=== PATIENT | male | born 1990 | race Two or more races ===

== ENCOUNTER 2019-07-02 23:52 | Inpatient (IN) | payer OTHER ==
[~2019-07-02] VITALS: Ht 177.8 cm; Wt 83.4 kg
[2019-07-03] MEDS ORDERED: LIDOCAINE W/ EPINEPHRINE 2% INJ 20ML VIAL ID ONE (02:00)
[2019-07-03 02:33] LABS: Basophils # (auto) 0 10 ^3/uL (0-0.2); Basophils % (auto) 0.1 % (0.0-2.0); Eosinophils # (auto) 0 10 ^3/uL (0-0.8); Hematocrit 45.9 % (41.0-53.0); Hemoglobin 15.3 g/dL (13.5-17.5); Lymphocytes # (auto) 0.9 10 ^3/uL (0.4-5.4); Mean Corpuscular Hemoglobin 30.1 pg (28.0-32.0); Mean Corpuscular Hgb Conc. 33.3 g/dL (32.0-36.0); Mean Corpuscular Volume 90.3 fL (80.0-100.0); Monocytes # (auto) 0.7 10 ^3/uL (0-1.3); Monocytes % (auto) 4.3 % (0.0-12.0); Neutrophils # (auto) 13.8 10 ^3/uL (1.6-8.6); Neutrophils % (auto) 89.6 % (37.0-80.0); Nucleated Red Blood Cells % 0.1 %; Platelet Count (auto) 183 10^3/uL (140-450); Red Blood Cells 5.08 10^6/uL (4.5-5.90); White Blood Cell 15.5 10^3/uL (4.4-10.8)
[2019-07-03 02:52] LABS: Albumin 4.2 g/dL (3.4-5.0); Calcium 8.5 mg/dL (8.5-10.1); Potassium 3.5 mmol/L (3.5-5.1)
[2019-07-03 02:56] LABS: BUN/Creatinine Ratio 12.4; Bilirubin, Total 0.2 mg/dL (0.2-1.0)
[2019-07-03] MEDS ORDERED: LORazepam 2MG/ML-1ML VIAL ONE ×2 (04:24)
[2019-07-03] MEDS ORDERED: LORazepam 2MG/ML-1ML VIAL IV ONE (04:30)
[2019-07-03] MEDS ORDERED: PHENYTOIN IV DILANTIN 1,000 MG in SODIUM CHL 0.9% 250 ML IV ONE (07:00)
[2019-07-03] MEDS ORDERED: LORazepam 2MG/ML-1ML VIAL IV PRN (07:15)
--- NOTE | 2019-07-03 08:25 | NUR ---
ER received patient from the ER. No signs of distress at this time. Will continue to monitor.
[2019-07-03 09:00] VITALS: BP 124/71
[2019-07-03] MEDS ORDERED: ENOXAPARIN SOD 40 MG/0.4 ML SYRINGE SC SCH (10:00)
[2019-07-03] MEDS ORDERED: levETIRAcetam 500 MG TAB PO SCH (10:00)
[2019-07-03] MEDS: D5W/SOD CHL 0.45% 1,000 ML IV SCH ×3 (10:10→20:55)
--- NOTE | 2019-07-03 10:10 | NUR ---
MRI Patient down to MRI. No signs of distress at this time.
[2019-07-03] MEDS ORDERED: PHE100C PO (10:16)
[2019-07-03 12:37] VITALS: BP 103/61
[2019-07-03 17:00] VITALS: BP 117/67
--- NOTE | 2019-07-03 19:00 | NUR ---
Received report from the Day RN. Joaquin. Pt. an inmate, resting quietly in bed with Officers @ the bedside.
--- NOTE | 2019-07-03 20:00 | NUR ---
Assessment done and completed.
--- NOTE | 2019-07-03 20:55 | NUR ---
IVF of D5 1/2 NS followed up a new bag of 1 L to run @ the same rate of 150 ml./hr. continuous.
[2019-07-03] MEDS: PHENYTOIN SODIUM 100 MG CAP PO SCH (21:16)
--- NOTE | 2019-07-03 21:16 | NUR ---
Due meds. given @ this time. Pt. made aware of the use and benefits of the med. scheduled. Pt. verbalized understanding.
[2019-07-03 22:00] VITALS: BP 116/70
--- NOTE | 2019-07-04 00:10 | NUR ---
Pt. resting and sleeping. No s/s of pain or discomfort. Officers @ the bedside.
--- NOTE | 2019-07-04 02:00 | NUR ---
Pt. sleeping and resting undisturbed. No verbalization of pain. No s/s of anxiety or agitation. Maintain a safe and quiet room environment.
[2019-07-04] MEDS: D5W/SOD CHL 0.45% 1,000 ML IV SCH ×2 (03:52→09:14)
--- NOTE | 2019-07-04 04:00 | NUR ---
Pt. sleeping, easily arousable to name. No s/s of pain or discomfort. Denies pain.
[2019-07-04 05:00] VITALS: BP 117/67
--- NOTE | 2019-07-04 07:52 | NUR ---
Opening Shift Note: Assumed care of patient, awake and alert. No S/S of distress/SOB or pain. Bed in lowest locked position, side rails up x 2. Guards at bedside. Patient instructed on POC and to call for assist PRN, will continue to monitor for changes Q1hr and PRN.
[2019-07-04 09:00] VITALS: BP 125/66
[2019-07-04] MEDS: PHENYTOIN SODIUM 100 MG CAP PO SCH (09:13)
[2019-07-04] MEDS ORDERED: ENOXAPARIN SOD 40 MG/0.4 ML SYRINGE SC SCH (10:00)
[2019-07-04] MEDS ORDERED: PANTOPRAZOLE 40 MG TAB PO SCH (10:00)
[2019-07-04] MEDS ORDERED: PHE100C PO (10:56)
[2019-07-04 11:23] VITALS: BP 125/66
--- NOTE | 2019-07-04 12:40 | NUR ---
Discharge instructions given as ordered. Encourage to follow up with PMD as instructed. All questions and concerns addressed. Patient verbalized understanding. Medication reconciliation form completed and copy given to chantell. IV removed with catheter intact, pressure dressing applied. Packed of paperwork given to chantell.
[2019-07-04 13:00] VITALS: BP 108/70
== END 2019-07-04 12:45 | DRG 101 ==
LOC: EDBD 23:52 → EEVIPCON 23:59 → ER 23:59 → OVERFLOW 07-03 → EAST 07-03 08:18
PROVIDERS: ADMIT Internal Medicine; ATTEND Internal Medicine
PROC: 0HQ1XZZ Repair Face Skin, External Approach (ICD-10-PCS; principal; 2019-07-03)
DX: G40.409 Other generalized epilepsy and epileptic syndromes, not intractable, without status epilepticus (principal); Z91.19 Patient's noncompliance with other medical treatment and regimen; Z79.899 Other long term (current) drug therapy; S01.511A Laceration without foreign body of lip, initial encounter; W06.XXXA Fall from bed, initial encounter; Y93.89 Activity, other specified; Y92.89 Other specified places as the place of occurrence of the external cause; Y99.8 Other external cause status
CPT/HCPCS: 36415; 70450; 70486; 70551; 80053; 80185; 85025; 96365; 96375; G0378